=== PATIENT | male | born 1980 | race Caucasian/White ===

== ENCOUNTER 2024-02-07 16:35 | Inpatient (IN) | payer OTHER ==
[~2024-02-07] VITALS: Ht 180.3 cm; Wt 77.1 kg
[2024-02-07 17:18] LABS: CLARITY URINE CLEAR (CLEAR); COLOR URINE YELLOW (YELLOW); GLUCOSE URINE 3+ (NEGATIVE); KETONES URINE 3+ (NEGATIVE); LEUKOCYTE ESTERASE URINE NEGATIVE (NEGATIVE); NITRITE URINE NEGATIVE (NEGATIVE); OCCULT BLOOD URINE 1+ (NEGATIVE); PH URINE 6.5 (4.5-8.0); PROTEIN URINE 2+ (NEGATIVE); SPECIFIC GRAVITY URINE 1.042 (1.005-1.030); UROBILINOGEN URINE 0.2 E.U./dL (0.2-1.0)
[2024-02-07 18:06] LABS: CHLORIDE 93 mEq/L (98-107); POTASSIUM 3.7 mEq/L (3.5-5.1); SODIUM 133 mEq/L (136-145)
[2024-02-07 18:07] LABS: CALCIUM 9.9 mg/dL (8.7-10.4); CARBON DIOXIDE 28 mEq/L (21-32)
[2024-02-07 18:08] LABS: BASOPHILS % 0.3 % (0.0-2.0); DIFFERENTIAL COMMENT 0; EOSINOPHILS % 0.2 % (0.0-5.0); HEMATOCRIT. 48.8 % (42.0-52.0); LYMPHOCYTES % 9.3 % (20.0-50.0); MEAN CORPUSCULAR HEMOGLOBIN 35.3 pg (28.0-32.0); MEAN CORPUSCULAR HGB CONC 34.8 g/dL (31.0-37.0); MEAN CORPUSCULAR VOLUME 101.5 fL (80.0-94.0); MEAN PLATELET VOLUME 10.2 fl (7.4-10.4); MONOCYTES % 6.5 % (2.0-8.0); NEUTROPHILS % 83.7 % (40.0-76.0); PLATELET 133 x1000/uL (130-400); RED BLOOD CELL COUNT 4.81 mill/uL (4.7-6.1); RED CELL DISTRIBUTION WIDTH 13.8 % (11.6-14.6); WHITE BLOOD COUNT 11.7 x1000/uL (4.5-11.0)
[2024-02-07 18:12] LABS: CREATININE 1.7 mg/dL (0.6-1.3); GLUCOSE 347 mg/dL (70-105); UREA NITROGEN BLOOD 26 mg/dL (9-23)
[2024-02-07 18:14] LABS: ALANINE AMINOTRANSFERASE 45 IU/L (10-49); ALBUMIN 4.7 g/dL (3.2-4.8); ASPARTATE AMINOTRANSFERASE 43 IU/L (<34); BILIRUBIN DIRECT 0.3 mg/dL (<=3.0)
[2024-02-07 18:15] LABS: BILIRUBIN TOTAL 1.2 mg/dL (0.1-1.0); PROTEIN TOTAL 8.1 g/dL (6.0-8.3)
[2024-02-07 18:16] LABS: BACTERIA URINE TRACE; SQUAMOUS EPITHELIAL CELL URINE 1+ /lpf (RARE/1+); WBC URINE 0-2 /hpf (0-2)
[2024-02-07 18:17] LABS: TROPONIN I HIGH SENSITIVITY 441 ng/L (3.0-53)
[2024-02-07] MEDS: SODIUM CHLORIDE 0.9% 1,000 ML IV ONE (19:37)
[2024-02-07] MEDS: ONDANSETRON HCL 4MG/2ML INJ IM ONE (19:37)
[2024-02-07] MEDS: MORPHINE SULFATE 4 MG/ML INJ (FOR IV/IM USE) IV ONE (19:41)
[2024-02-07 22:20] LABS: PROTHROMBIN TIME 10.7 sec (9.6-11.0)
[2024-02-07 22:30] LABS: TROPONIN I HIGH SENSITIVITY 363 ng/L (3.0-53)
[2024-02-08 02:40] VITALS: BP 162/86; PULSE 73; RESP 19; TEMP 36.6404
[2024-02-08] MEDS ORDERED: DEXT 5%/0.45% NACL KCL 20MEQ/L 1,000 ML IV SCH (03:00)
[2024-02-08] MEDS ORDERED: NALOXONE HCL 0.4MG/ML VIAL IV PRN (04:30)
[2024-02-08] MEDS: PANTOPRAZOLE SODIUM 40 MG/VIAL IV SCH (05:28)
[2024-02-08] MEDS: ONDANSETRON HCL 4MG/2ML INJ IV PRN (05:28)
[2024-02-08] MEDS: METOPROLOL TARTRATE 50MG TABLET PO SCH (05:29)
[2024-02-08] MEDS: MORPHINE SULFATE 2 MG/ML INJ (NOT FOR IM USE) IV PRN (05:30)
[2024-02-08 07:23] LABS: CARBON DIOXIDE 30 mEq/L (21-32); CHLORIDE 94 mEq/L (98-107); POTASSIUM 4.6 mEq/L (3.5-5.1); SODIUM 135 mEq/L (136-145)
[2024-02-08 07:25] LABS: CALCIUM 9.9 mg/dL (8.7-10.4)
[2024-02-08 07:29] LABS: CREATININE 1.3 mg/dL (0.6-1.3); GLUCOSE 270 mg/dL (70-105); UREA NITROGEN BLOOD 23 mg/dL (9-23)
[2024-02-08 07:31] LABS: ALANINE AMINOTRANSFERASE 41 IU/L (10-49); ASPARTATE AMINOTRANSFERASE 44 IU/L (<34)
[2024-02-08 08:00] VITALS: BP 165/100; PULSE 73; RESP 18; TEMP 36.28068; O2SAT 100
[2024-02-08 08:06] LABS: HEMATOCRIT. 49.4 % (42.0-52.0); HEMOGLOBIN. 16.8 g/dL (14.0-18.0); MEAN CORPUSCULAR HEMOGLOBIN 35.5 pg (28.0-32.0); MEAN CORPUSCULAR HGB CONC 34.1 g/dL (31.0-37.0); MEAN CORPUSCULAR VOLUME 103.9 fL (80.0-94.0); MEAN PLATELET VOLUME 10.8 fl (7.4-10.4); PLATELET 109 x1000/uL (130-400); RED BLOOD CELL COUNT 4.75 mill/uL (4.7-6.1); WHITE BLOOD COUNT 11.8 x1000/uL (4.5-11.0)
[2024-02-08 08:13] LABS: DIFFERENTIAL COMMENT 1
[2024-02-08] MEDS: ENOXAPARIN 40MG/0.4ML SYR SUBCUT SCH (09:18)
[2024-02-08] MEDS: HYDROCODONE/ACETAMINOPHEN 5/325MG TABLET PO PRN (09:36)
[2024-02-08 12:00] VITALS: BP 150/88; PULSE 71; RESP 18; TEMP 36.33624; O2SAT 100
[2024-02-08] MEDS: POTASSIUM CHLORIDE 20 MEQ in DEXT 5%/0.45% NACL 1000ML 1,000 ML IV SCH (13:47)
[2024-02-08 16:00] VITALS: BP 173/94; PULSE 67; RESP 18; TEMP 36.44736; O2SAT 100
[2024-02-08 16:53] LABS: PLATELET ESTIMATE SLIGHTLY DECREASED
[2024-02-08] MEDS: AMLODIPINE 10MG TABLET PO SCH (17:53)
[2024-02-08 20:00] VITALS: BP 151/83; PULSE 60; RESP 18; TEMP 36.78072; O2SAT 96
[2024-02-09] VITALS: BP 157/97; PULSE 64; RESP 20; TEMP 37.11408; O2SAT 98
[2024-02-09] MEDS ORDERED: LISI10TA26 MT (02:02)
[2024-02-09] MEDS ORDERED: GLIP10TA17 MT (02:02)
[2024-02-09] MEDS ORDERED: METF-416 MT (02:02)
[2024-02-09 04:00] VITALS: BP 148/81; PULSE 72; RESP 18; TEMP 36.22512; O2SAT 98
[2024-02-09 08:00] VITALS: BP 142/96; PULSE 80; RESP 16; TEMP 36.33624; O2SAT 96
[2024-02-09 12:00] VITALS: BP 146/89; PULSE 69; RESP 17; TEMP 36.44736; O2SAT 97
[2024-02-09 14:13] VITALS: BP 146/89; PULSE 69; TEMP 97.6; O2SAT 97
[2024-02-09 15:53] LABS: *AMPHETAMINES SCREEN URINE NEGATIVE (NEGATIVE); *BARBITURATES SCREEN URINE NEGATIVE (NEGATIVE); *BENZODIAZEPINES SCREEN URINE NEGATIVE (NEGATIVE); *COCAINE SCREEN URINE NEGATIVE (NEGATIVE); CANNABINOID URINE SCREEN NEGATIVE (NEGATIVE); ECSTASY MDMA SCREEN URINE NEGATIVE (NEGATIVE); METHADONE URINE SCREEN NEGATIVE (NEGATIVE); OPIATES URINE SCREEN PRESUMPTIVE POSITIVE (NEGATIVE); PHENCYCLIDINE URINE SCREEN NEGATIVE (NEGATIVE)
== END 2024-02-09 16:30 | disposition home or self-care (01) | DRG 391 ==
LOC: ER 16:35 → EDBEDREQTM 21:53 → EDBEDREQSVC 21:53 → 7EST 23:11
PROVIDERS: ADMIT Internal Medicine; ATTEND Internal Medicine
DX: R10.13 Epigastric pain (principal); I21.A1 Myocardial infarction type 2; N17.0 Acute kidney failure with tubular necrosis; K86.1 Other chronic pancreatitis; F10.10 Alcohol abuse, uncomplicated; I10 Essential (primary) hypertension; K76.0 Fatty (change of) liver, not elsewhere classified; Z88.5 Allergy status to narcotic agent
CPT/HCPCS: 36415; 76700; 80048; 80076; 80305; 81003; 82962; 83036; 84450; 84460; 84484; 85025; 93005; 99285; J1650; J2270; J2405; J2470; J3480; J7030